=== PATIENT | male | born 1960 | race Caucasian/White ===

== ENCOUNTER 2021-12-07 08:13 | Outpatient (CLI) | payer BC, SELFPAY ==
[2021-12-07 13:09] LABS: Albumin* 4.2 g/dL (3.3-5.0); Chloride* 106 mmol/L (96-114)
[2021-12-07 13:10] LABS: Potassium* 5.1 mmol/L (3.6-5.1); Sodium* 139 mmol/L (135-149)
[2021-12-07 13:12] LABS: Aspartate Amino Transferase* 33 U/L (12-35); Bilirubin Total* 0.5 mg/dL (0.1-1.5); Blood Urea Nitrogen* 17 mg/dL (7-30); Carbon Dioxide* 26 mmol/L (20-32); Cholesterol* 187 mg/dL (90-199); Estimated Glomerular Filt Rate 85 ml/min; Total Protein* 6.6 g/dL (6.0-8.3)
[2021-12-07 13:13] LABS: Alanine Aminotransferase* 43 U/L (4-50); Alkaline Phosphatase* 76 U/L (40-150); Calcium* 9.3 mg/dL (8.4-10.6); Glucose* 101 mg/dL (60-115); HDL Cholesterol* 44 mg/dL (>=40); LDL Cholesterol Calculated 123 mg/dL (<100); Triglycerides* 102 mg/dL (40-149)
[2021-12-07 13:43] LABS: PSA Screen* 1.52 ng/mL (0.10-4.00)
== END 2021-12-07 08:14 | disposition home or self-care (01) ==
PROVIDERS: PCP Internal Medicine; Visit Provider Internal Medicine
DX: Z00.00 Encounter for general adult medical examination without abnormal findings (principal); E78.5 Hyperlipidemia, unspecified; N52.9 Male erectile dysfunction, unspecified; Z23 Encounter for immunization; Z12.5 Encounter for screening for malignant neoplasm of prostate; Z83.3 Family history of diabetes mellitus
CPT/HCPCS: 80053; 80061; 84153

== ENCOUNTER 2023-03-21 07:59 | Outpatient (CLI) | payer MEDICARE, BC, SELFPAY | END 2023-03-21 08:00 | disposition home or self-care (01) | PROVIDERS: PCP Internal Medicine; Visit Provider Internal Medicine | DX: Z00.00 Encounter for general adult medical examination without abnormal findings (principal); E78.5 Hyperlipidemia, unspecified; Z12.5 Encounter for screening for malignant neoplasm of prostate | CPT/HCPCS: 80053; 80061; 84153 ==

== ENCOUNTER 2023-04-22 23:46 | Emergency (ER) | payer MEDICARE, BC, SELFPAY ==
[2023-04-22 23:51] VITALS: BP 170/90; PULSE 60; RESP 16; TEMP 36.6; O2SAT 99; BMI 27.3
--- NOTE | 2023-04-23 00:28 | ED.GENADULT ---
HPI - General Adult General Chief complaint: Eye Problems Stated complaint: vision disturbance Time Seen by Provider: 04/22/23 23:52 Source: patient and family Mode of arrival: ambulatory Limitations: no limitations History of Present Illness HPI narrative: 63-year-old male presents the emergency department with a 1 hour history of vision change in his right eye. He reports that initially it started as a wavy darkness at the medial and lateral aspects of the vision only in his right eye and then progressed to a web-like appearance with darker nondistinct lines through his vision and now it seems like he is ?looking through a jellyfish?. No prior history of similar symptoms, no pain. No trauma or injury. No fever or recent illness. No history of migraines or atypical neurological changes. No vision changes in the opposite eye. No history of glaucoma. He does follow with an member services representative in [facility] but has never had a reason to see an radiation control technician nor any prior eye surgeries. He does have a family history of spontaneous retinal detachment in his father. No family history of bleeding disorders, blood clotting disorders, connective tissue disorders. He did not try any interventions prior to coming to the ED. Past medical history is quite benign. He takes no long-term medications, has no allergies. Primary care provider is Dr. Banda ROS is notable for the ocular symptoms as described above. Otherwise negative for skin, head, neurological or other HEENT concerns. Related Data Previous Rx's Medication Instructions Recorded sildenafil (pulm.hypertension) 20 20 mg PO DAILY PRN sexual activity 12/07/21 mg tablet #60 tabs Allergies Allergy/AdvReac Type Severity Reaction Status Date / Time No Known Drug Allergies Allergy Verified 03/27/23 08:38 PFSH PFS Surgical History (Updated 11/13/21 @ 14:04 by Adelia Brenner) History of right knee surgery ?Z98.890 - Other specified postprocedural states (ICD-10) History of vasectomy ?Z98.52 - Vasectomy status (ICD-10) History of tonsillectomy ?Z90.89 - Acquired absence of other organs (ICD-10) Family History (Updated 11/13/21 @ 13:59 by Adelia Brenner) Father Diabetes High blood pressure Paternal Grandmother Colon cancer Social History Smoking Status: Never smoker How often do you have a drink containing alcohol: never AUDIT-C Alcohol total score: 0 Non-prescribed substance use: denies use Little interest or pleasure in doing things: not at all Feeling down, depressed, or hopeless: not at all Exam Const: Vital Signs, click to edit/add: Vital Signs - 24 hr 04/22/23 23:51 Temperature 97.9 F Pulse Rate [Pulse Oximeter] 60 Respiratory Rate 16 Blood Pressure [Ri ght Upper Arm] 170/90 H Pulse Oximetry 99 Oxygen Delivery Me thod Room Air Documenting provider has reviewed patient's vital signs: yes Common normals: no apparent distress General appearance: cooperative and well kempt HENMT: Common normals: normocephalic, head/scalp atraumatic, hearing grossly normal bilaterally and moist oral mucous membranes Head and scalp: normocephalic and atraumatic Eye: Other: Left eye appears grossly normal. The right eye shows sclera that is slightly injected. Both eyes have pupils that are equal and round, reactive to light. Normal extraocular movements. The right eye specifically has normal appearing pupil and iris. Funduscopic limited exam shows non sharp, darker structures, nondistinct. Suspicious for retinal detachment. Neck & C-Spine: Common normals: full ROM and no meningeal signs General: normal visual inspection Resp: Common normals: normal respiratory effort Effort & inspection: able to speak in complete sentences Neuro: Meningeal signs: no meningeal signs Speech: speech normal Motor exam: no tremor noted and no movement abnormalities noted Psych: Appearance: well kempt Mood and affect: euthymic mood Insight: insight good Judgement: judgment good Skin: Common normals: no rashes or lesions noted General skin exam: no rashes or lesions noted Course Course ED Course: Counseled patient that I am concerned with retinal detachment. Though this is no longer considered an immediate surgical emergency at certainly warrants urgent attention. Counseled patient that it is unlikely that they would perform surgery in the middle of the night but getting him connected to a specialist through our health network is quite difficult for this. I recommended that they transfer to a center that has ophthalmology capabilities and can perform a more thorough exam tonight and arrange appropriate ophthalmology intervention though this will likely be in 1-2 days. I given a list of tertiary care centers. They are agreeable to going by private car, patient's is here and she can drive him. Counseled not to eat or drink long the way. They do not need me to arrange transport. All questions answered, they verbalized understanding and agreement. Vital Signs Vital signs: Initial Vital Signs Temperature 97.9 F 04/22/23 23:51 Temperature Source Temporal Artery Scan 04/22/23 23:51 Pulse Rate 60 04/22/23 23:51 Respiratory Rate 16 04/22/23 23:51 Blood Pressure 170/90 H 04/22/23 23:51 Blood Pressure Mean 116 H 04/22/23 23:51 Blood Pressure Position Sitting 04/22/23 23:51 Pulse Oximetry 99 04/22/23 23:51 Oxygen Delivery Method Room Air 04/22/23 23:51 Vital Signs Temperature 97.9 F 04/22/23 23:51 Pulse Rate 60 04/22/23 23:51 Respiratory Rate 16 04/22/23 23:51 Blood Pressure 170/90 H 04/22/23 23:51 Pulse Oximetry 99 04/22/23 23:51 Oxygen Delivery Method Room Air 04/22/23 23:51 Temperature 97.9 F 04/22/23 23:51 Pulse Rate 60 04/22/23 23:51 Respiratory Rate 16 04/22/23 23:51 Blood Pressure 170/90 H 04/22/23 23:51 Pulse Oximetry 99 04/22/23 23:51 Oxygen Delivery Method Room Air 04/22/23 23:51 Discharge Plan Discharge Clinical Impression: Retinal detachment Patient Disposition: Xfer Other Instructions: Surgery for Retinal Detachment (DC) Additional Instructions: As we discussed, I am concern for retinal detachment. This is a condition that requires surgical intervention. Thankfully, it does not typically need intervention in the middle of the night. Unfortunately, I do not have an ophthalmology team that is able to fix this for you. I would like to refer you to a tertiary care center, and emergency department that has access to an ophthalmology team. It is unlikely that they will intervene with surgery tonight but they will be able to perform a more thorough exam, and connect you with the ophthalmology team for an appointment later today. Ultimately, this could be other reasons for your vision change. I am most concerned with your retina as vision loss can be permanent if this is not properly addressed. I would recommend that your take you to [facility], [place] or [facility]. Your medically stable at this time and may go by private car. Do not recommend stopping to eat or drink along the way. Prescriptions: No Action sildenafil (pulm.hypertension) 20 mg tablet 20 mg PO DAILY PRN (Reason: sexual activity) Qty: 60 3RF Hold Instructions: Doctor's Order Rx Instructions: administer doses at least 4-6 hours apart Stand Alone Forms: [employer] Info Instructions
== END 2023-04-23 00:24 | disposition other institution (70) ==
LOC: ED 04-23 00:21
PROVIDERS: Emergency Provider Family Medicine; PCP Internal Medicine
DX: H33.8 Other retinal detachments (principal)
CPT/HCPCS: 95992; 99283

== ENCOUNTER 2024-05-11 16:31 | Outpatient (CLI) | payer MEDICARE, BC, SELFPAY | END 2024-05-11 16:32 | disposition home or self-care (01) | PROVIDERS: PCP Internal Medicine; Visit Provider Internal Medicine | DX: M25.461 Effusion, right knee (principal) | CPT/HCPCS: 86618; 87070; 89051; 89060 ==

== ENCOUNTER 2024-06-01 08:33 | Outpatient (CLI) | payer MEDICARE, BC, SELFPAY | END 2024-06-01 08:34 | disposition home or self-care (01) | LOC: NFLDREF 06-08 00:49 | PROVIDERS: PCP Internal Medicine; Referring Provider Internal Medicine; Visit Provider Internal Medicine | DX: E78.5 Hyperlipidemia, unspecified (principal); Z12.5 Encounter for screening for malignant neoplasm of prostate; Z13.9 Encounter for screening, unspecified | CPT/HCPCS: 80053; 80061; G0103 ==

== ENCOUNTER 2024-07-07 11:43 | Outpatient (CLI) | payer MEDICARE, BC, SELFPAY ==
--- NOTE | 2024-07-07 13:07 | W.ANESCHARGE ---
Anesthesia Charges Start Date/Time Anesthesia Start Date: 07/07/24 Anesthesia Start Time: 12:32 Stop Date/Time Anesthesia Stop Date: 07/07/24 Anesthesia Stop Time: 13:05 Coding CPT Codes CPT Codes: DAVID WEBER INTST NDSC NOS - 90805 ([id number]) P2 - PATIENT W/MILD SYST DISEASE, QX - INTEGRATED SPECIALIST SVC W/ MD MED DIRECTION, QK - HEARING THERAPIST 2-4 CNCRNT ANERuss PROC
--- NOTE | 2024-07-07 13:44 | W.ANESCHARGE ---
Anesthesia Charges Start Date/Time Anesthesia Start Date: 07/07/24 Anesthesia Start Time: 12:32 Stop Date/Time Anesthesia Stop Date: 07/07/24 Anesthesia Stop Time: 13:05 Coding CPT Codes CPT Codes: DAVID LWR INTST NDSC NOS - 54977 ([id number]) P2 - PATIENT W/MILD SYST DISEASE, QK - TAKER OFF HEMP FIBER 2-4 CNCRNT ANES PROC, QX - DIRECTOR OF STRATEGIC PARTNERSHIPS SVC W/ MD MED DIRECTION
== END 2024-07-07 11:44 | disposition home or self-care (01) ==
LOC: OP CLINIC 11:43
PROVIDERS: PCP Internal Medicine; Visit Provider Surgery
DX: K63.5 Polyp of colon (principal); Z12.11 Encounter for screening for malignant neoplasm of colon; D12.3 Benign neoplasm of transverse colon; D12.7 Benign neoplasm of rectosigmoid junction; D12.8 Benign neoplasm of rectum; K57.30 Diverticulosis of large intestine without perforation or abscess without bleeding; Z86.0100 Personal history of colon polyps, unspecified
CPT/HCPCS: 00811; 45385; 88305; J2704